=== PATIENT | male | born 1955 | race Caucasian/White ===

== ENCOUNTER 2018-06-14 20:59 | Observation (INO) ==
[2018-06-14] MEDS ORDERED: Naloxone 0.4 MG/ML INJ IVP PRN (23:38)
--- NOTE | 2018-06-15 00:21 | Internal Med History&Physical ---
Date of Encounter: 06/15/18 Time of Encounter: 00:21 Internal Medicine - H&P: HPI Chief complaint: Dizziness History of present illness: Mr. Cole is a 63 year old male with a past medical history of hypertension, hyperlipidemia, coronary artery disease status post quadruple bypass, recent history of TIA/CVA, gout and diabetes who presents with a chief complaint of di zziness. Patient reports for the past week he has come down with a sinus infection with associated upper airway congestion which he attributes to being around his grandchildren who were also sick previously. Patient was seen by his PCP yesterday and started on amoxicillin. However, patient states that earlier this evening after getting up from the dinner table he began having significant dizziness which he describes as the room spinning around him. Patient was also off balance running into door frames. Denies leaning to any particular side with ambulation. Symptoms persisted for several hours and did not improve with rest, at which time his became concerned given his history of previous stroke and decided to come into [facility] for further evaluation. Patient was given fluids and meclizine with improvement in symptoms and subsequently transferred to [place]. Patient reports last March he was evaluated at [facility] and diagnosed with what he believes was a TIA after presenting with symptoms of slurred speech and confusion. He states he still has difficulty writing with us right hand. He is right-hand dominant. He states that workup revealed 50-60% stenosis within his carotids as well as 40% stenosis in the posterior circulation on CTA. Patient has follow-up appointment with neurology in June. Patient otherwise denies any blurry vision, headache, ear fullness or tinnitus, chest pain, palpitation, nausea, vomiting or diarrhea. Further denies any weakness in any of his extremities, paresthesias, facial droop or slurred speech. Patient currently denies any vertigo symptoms of vertigo. My examination patient is neurologically intact. No evidence of nystagmus. Vitals are stable. Review of labs and EKG performed at [place] were unremarkable. Initial CT scan of the head showed no acute changes. An old lacunar infarct involving left basal ganglia region was noted. CTA of the brain performed in March showed up to 40% narrowing of the more proximal basilar artery. Patient was subsequently transferred for further neurologic evaluation. Past Med Surg Social Fam HX - Past Medical History Medical history: coronary artery disease, CVA, diabetes, hypertension, kidney stones, other Additional medical history: vertigo Psychiatric history: no psych history - Past Surgical History Surgical History: coronary bypass (CABG) - Social History Smoking Status: Former smoker Smokeless Tobacco Status: No Alcohol use: rarely Drug use: none - Family History Mother Living Status: Hx Family Cardiac Disorders: Yes Hx Family Cancer: Yes Brother Living Status: Age at : 62 Hx Family Cardiac Disorders: Yes Internal Medicine - H&P: Meds Allopurinol [Zyloprim 300 MG] 300 mg PO DAILY 06/15/18 [History] Amlodipine Besylate 10 mg PO DAILY 06/15/18 [History] Atenolol 25 mg PO BID 06/15/18 [History] Hydrochlorothiazide [Microzide] 12.5 mg PO DAILY 06/15/18 [History] Methocarbamol [Robaxin] 750 mg PO Q8HR 06/15/18 [History] Omeprazole [PriLOSEC] 40 mg PO BID 06/15/18 [History] Ondansetron HCl [Zofran] 4 mg PO Q16H PRN 06/15/18 [History] Quinapril HCl 40 mg PO BID 06/15/18 [History] Scopolamine 1 mg TD Q3D 06/15/18 [History] metFORMIN [Glucophage] 500 mg PO BID 06/15/18 [History] Allergy/AdvReac Type Severity Reaction Status Date / Time No Known Allergies Allergy Verified 06/15/18 00:49 All Systems PM: A 10-system review of systems was performed and is negative for pertinent findings except as documented above in the HPI. - Constitutional Constitutional: no chills, no fever(s), no night sweats - EENT Eyes: no change in vision, no discharge, no pain, no photophobia Ears: no ear discharge, no ear pain, no tinnitus Nose, mouth and throat: no dysphagia, no nasal discharge, no neck pain, no sore throat - Cardiovascular Cardiovascular ROS IM: no chest pain, no diaphoresis, no dyspnea, no light headedness, no palpitations, no syncope - Respiratory Respiratory: no cough, no dyspnea, no wheezing, no excessive phlegm production - Gastrointestinal Gastrointestinal: no abdominal pain, no diarrhea, no hematemesis, no h ematochezia, no melena, no nausea, no vomiting - Musculoskeletal Musculoskeletal ROS IM: no numbness, no tingling - Integumentary Integumentary IM: no rash, no unusual bruising - Neurological Neurological ROS: no confusion, no convulsions, no focal weakness, no numbness, no tingling, no tremor(s) - Hematologic/Lymphatic Hematologic/Lymphatic: no easy bruising - Constitutional Vitals: Temp Pulse Resp BP Pulse Ox 97.6 F 70 18 124/76 95 06/14/18 22:45 06/14/18 22:45 06/14/18 22:45 06/14/18 22:45 06/14/18 23:26 Exam: General: Alert and oriented 3 lying in bed in no acute distress Skin:Normal color, no rash, no lesions. HEENT:EOM, pupils equal, round and reactive. Cardiovascular: Normal S1 & S2, no rubs, murmurs or gallops. No JVD. Pulse regular. Lungs:Normal breath sounds, no wheezes or crackles. Abdomen:Soft, non-tender, no rigidity. Extremities:No deformity, no edema or tenderness, no joint swelling or clubbing. Neurological:Normal cognition and motor skills. Cranial nerves II through XII intact. No evidence of pronator drift. No evidence of nystagmus. Muscle strength 5 out of 5 in upper and lower extremities. Sensation intact. Pulses:Carotid and radial pulses normal +2. Rest of the physical exam is non contributory Internal Med - H&P Results - Labs CBC & Chem 7: 06/15/18 00:59 06/15/18 00:59 - Assessment and plan (1) Dizziness Current Visit: Yes Status: Acute Assessment and plan: 63-year-old male with a past medical history of TIA versus CVA last March presents with dizziness described as the room spinning lasting for several hours improving after taking meclizine. Patient currently asymptomatic and neurologically intact. Review of his labs and EKG are unremarkable. I suspect that symptoms most likely secondary to his current upper respiratory tract infection however, given his history of stroke and duration of his vertiginous symptoms in the setting of his history of carotid and posterior circulatory atherosclerotic disease, there is concern for possible posterior circulatory TIA versus stroke. -Continue neuro checks -We will allow permissive hypertension -Give loading dose of aspirin -We will obtain further stroke workup with echo and carotid duplex. -Consider MRI with vascular imaging of the head and neck and discussion with neurology for choosing the optimal study. Patient does have a strong aversion to MRI and will need some sort of sedation. -Neurology consult (2) Hypertension Current Visit: Yes Status: Acute Assessment and plan: Blood pressure stable. We will hold off patient's home antihypertensives for now. Qualifiers: Qualified Code(s): I10 - Essential (primary) hypertension (3) Acute sinusitis Current Visit: Yes Status: Acute Assessment and plan: Consider continuing patient's antibiotics once medications reconciled. Patient reportedly on amoxicillin. Qualifiers: Qualified Code(s): J01.90 - Acute sinusitis, unspecified (4) History of coronary artery disease Current Visit: Yes Status: Acute Assessment and plan: History of coronary artery disease status post quadruple bypass surgery. Patient denies any chest pain. Continue patient's home regimen for his heart disease. (5) DVT prophylaxis Current Visit: Yes Status: Acute Assessment and plan: Subcutaneous heparin - Time Spent With Patient Total time spent is greater than 50% in coordination of care (as documented) at patient's floor/unit and/or counseling patient:
[2018-06-15] MEDS ORDERED: Aspirin 325 MG TABLET PO ONE (00:50)
[2018-06-15 01:09] LABS: Basophils # 0.1 K/mcL (0.0-0.2); Basophils % 0.4 %; Eosinophils % 0.2 %; Hematocrit 37.8 % (37.5-50.1); Hemoglobin 12.9 g/dL (12.9-16.9); Immature Granulocytes % 0.8 % (0-4); Lymphocytes # 2.4 K/mcL (0.6-4.6); Lymphocytes % 18.9 %; Mean Corpuscular HGB Conc 34.1 g/dL (31.6-35.5); Mean Corpuscular Hemoglobin 32.1 pg (28.0-33.3); Mean Platelet Volume 10.4 fL (9.4-12.4); Monocytes # 0.7 K/mcL (0.0-1.3); Monocytes % 5.8 %; Neutrophils # 9.2 K/mcL (1.6-8.9); Platelet Count 191 K/mcL (140-400); Red Blood Count 4.02 M/mcL (4.19-5.50); Red Cell Distribution Width 13.2 % (11.5-14.5); Segmented Neutrophils % 73.9 %
[2018-06-15 01:21] LABS: INR 1.2; Prothrombin Time 13.2 Seconds (9.4-12.1)
[2018-06-15 01:31] LABS: Alanine Aminotransferase 16 Units/L (7-52); Albumin 3.9 g/dL (3.5-5.7); Albumin/Globulin Ratio 0.9 (1.1-2.2); Alkaline Phosphatase 62 Units/L (34-104); Aspartate Amino Transferase 15 Units/L (13-39); BUN/Creatinine Ratio 21 (6-26); Bilirubin,Total 0.4 mg/dL (0.3-1.0); Blood Urea Nitrogen 16 mg/dL (8-23); Calcium 9.4 mg/dL (8.6-10.3); Carbon Dioxide 25 mEq/L (23-29); Chloride 102 mEq/L (98-107); Globulin 4.2 g/dL (2.4-3.5); Glucose 139 mg/dL (70-105); Osmolality,Calculated 283 (280-300); Potassium 4.3 mEq/L (3.5-5.1); Sodium 135 mEq/L (136-145); Total Protein 8.1 g/dL (6.4-8.9); Troponin I < 0.03 ng/mL (< 0.04); eGFR For Non-African Americans > 60 (> 60)
[2018-06-15 01:44] LABS: Thyroid Stimulating Hormone 2.398 mcIU/mL (0.340-5.600)
[2018-06-15] MEDS: *HR* Heparin 5,000 UNIT/ML VIAL SQ SCH ×2 (03:52→06:04)
[2018-06-15] MEDS ORDERED: Ondansetron ODT 4 MG TAB.RAPDIS PO PRN (06:29)
[2018-06-15 07:01] LABS: Amphetamine Screen,Urine Negative ng/mL (Cutoff=1000); Barbiturate Screen,Urine Negative ng/mL (Cutoff=200)
[2018-06-15 07:02] LABS: Benzodiazepines Screen,Urine Negative ng/mL (Cutoff=300); Cannabinoid Screen,Urine Negative ng/mL (Cutoff = 50); Cocaine Screen,Urine Negative ng/mL (Cutoff= 300); Opiate Screen,Urine Negative ng/mL (Cutoff=300); Phencyclidine Screen,Urine Negative ng/mL (Cutoff=25)
[2018-06-15 07:14] VITALS: BP 134/85
[2018-06-15 07:15] LABS: Bilirubin,Urine Negative (Negative); Blood,Urine Negative (Negative); Clarity,Urine Clear (Clear); Color,Urine Yellow (Yellow); Glucose,Urine (UA) Normal (Normal); Ketones,Urine Negative (Negative); Leukocyte Esterase,Urine Negative (Negative); Nitrite,Urine Negative (Negative); PH,Urine 6.5 pH Units (5.0-8.0); Protein,Urine Negative (Neg-Trace); Specific Gravity,Urine 1.011 (1.010-1.025); Urobilinogen,Urine Normal (Normal)
[2018-06-15 07:18] LABS: Alanine Aminotransferase 17 Units/L (7-52); Albumin 4.2 g/dL (3.5-5.7); Alkaline Phosphatase 64 Units/L (34-104); Aspartate Amino Transferase 25 Units/L (13-39); BUN/Creatinine Ratio 17 (6-26); Bilirubin,Total 0.5 mg/dL (0.3-1.0); Blood Urea Nitrogen 14 mg/dL (8-23); Calcium 9.7 mg/dL (8.6-10.3); Carbon Dioxide 27 mEq/L (23-29); Chloride 100 mEq/L (98-107); Chol/HDL Ratio 7.1 (0-4.9); Cholesterol 235 mg/dL (< 200); Globulin 4.3 g/dL (2.4-3.5); Glucose 103 mg/dL (70-105); HDL Cholesterol 33 mg/dL (40-59); LDL Cholesterol,Calculated 161 mg/dL (0-99); Osmolality,Calculated 281 (280-300); Potassium 4.3 mEq/L (3.5-5.1); Sodium 135 mEq/L (136-145); Total Protein 8.5 g/dL (6.4-8.9); Triglycerides 203 mg/dL (< 150); Troponin I < 0.03 ng/mL (< 0.04); eGFR For Non-African Americans > 60 (> 60)
--- NOTE | 2018-06-15 10:10 | Neurology - Consult Note ---
<Artem Stringer J - Last Filed: 06/15/18 11:45> Date of Encounter: 06/15/18 Time of Encounter: 09:55 Assessment and Plan (1) Dizziness Current Visit: Yes Status: Acute Presents with dizziness. Has history of recent TIA in 2017; there is concern for possible CVA. Neurology has been consulted for further evaluation. At [facility] he has had a CT head which shows sinusitis but no acute ischemia, hemorrhage, mass effect or midline shift. CTA of the head and neck at [facility] reveals 40% stenosis of the posterior circulation. His risk factors for stroke are CAD, HLD, HTN, DM, obesity, recent TIA and former smoker history. My exam today does not find any focal or lateralizing deficits. Given negative exam findings I have low suspicion for a central cause of dizziness; however, given risk factors I will proceed with CVA workup.. The dizziness could certainly be explained by his sinusitis; defer to primary team to manage. Also he did vertiginous symptoms which resolved with Antivert Plan/Recommendations: MRI brain to evaluate for acute pathology; at this time the patient does not wish to proceed with the MRI. Patient refused to MRI I have discussed the importance of the MRI in evaluating for acute pathological cause given his recent TIA however, he wishes to think it over. I agree with the echocardiogram I do not feel that there is a need for the carotid duplex scan since he has had a CTA at [facility] Continue ASA and statin I agree with permissive HTN at this juncture; resume anti-HTN meds if MRI negative for acute event Frequent neurological assessments I have discussed strict blood glucose control, hypertension control and weight loss (2) Acute sinusitis Current Visit: Yes Status: Acute defer to primary team for treatment Qualifiers: Qualified Code(s): J01.90 - Acute sinusitis, unspecified History of Present Illness Chief complaint: dizziness HPI: Mr. Cole is a 63 year old male with a PMH of ,CAD and CABG, DM, HTN, HLD, recent TIA in March of 2018 who presents from [facility] with dizziness. Neurology has been consulted to r/o cause of dizziness and for concerns of possible TIA/CVA. The patient reports that yesterday evening he began to have dizziness after standing up from his chair. He notes that he sat back down to see if it would go away. However, the dizziness was persistent and given his history of recent TIA his spouse called EMS with concerns for possible CVA. He does note that the dizziness was aggravated with position change. He did note that he received meclizine at [facility] and that this did help somewhat. He is currently back to baseline and denies any dizziness. During this event he denies any headache, visual changes, facial droop, slurred speech, ear fullness, tinnitus, unilateral weakness or parasthesias, chest pain, dyspnea, palpitations, or tachycardia. He states that these symptoms are different in comparison to his March TIA. A CT of the head was obtained from [facility] and did not reveal any acute findings but did note a sinusitis. A CTA of the head/neck did not reveal any acute findings but did show 40% stenosis in the posterior circulation. His CXR did not reveal any acute pulmonary findings. Per my review of the EKG he is in sinus rhythm with PVC's. His lab workup did reveal a mild leukocytosis but his UA was not suspicious for UTI and he has no obvious source or signs of infection. His vitals are stable; currently he is resting comfortable in bed without any dizziness. He reports that he has been out of bed today and that his dizziness has resolved after taking antivert. Given his risk factors and history of recent TIA I believe that it would be prudent to proceed with TIA workup. Past Med Surg Social Fam HX - Past Medical History Medical history: coronary artery disease, CVA, diabetes, hypertension, kidney stones, other Additional medical history: vertigo Psychiatric history: no psych history - Past Surgical History Surgical History: coronary bypass (CABG) - Social History Smoking Status: Former smoker Smokeless Tobacco Status: No Alcohol use: rarely Drug use: none - Family History Mother Living Status: Hx Family Cardiac Disorders: Yes Hx Family Cancer: Yes Brother Living Status: Age at : 62 Hx Family Cardiac Disorders: Yes Medications and Allergies Allopurinol [Zyloprim 300 MG] 300 mg PO DAILY 06/15/18 [History] Amlodipine Besylate 10 mg PO DAILY 06/15/18 [History] Aspirin 81 mg PO DAILY 06/15/18 [History] Clopidogrel [Plavix] 75 mg PO DAILY 06/15/18 [History] Meclizine [Antivert] 12.5 mg PO TID PRN 5 Days #15 tablet 06/15/18 [Rx] Metoprolol Succinate [Toprol Xl] 50 mg PO DAILY 06/15/18 [History] Multivit-Min/FA/Vit K/Lycopene [One-A-Day Men's 50 Plus Tablet] 1 tab PO DAILY 06/15/18 [History] Omeprazole [PriLOSEC] 40 mg PO DAILY 06/15/18 [History] Quinapril HCl 40 mg PO BID 06/15/18 [History] Sildenafil Citrate [Viagra] 100 mg PO PRN PRN 06/15/18 [History] metFORMIN [Glucophage] 500 mg PO BID 06/15/18 [History] Allergy/AdvReac Type Severity Reaction Status Date / Time No Known Allergies Allergy Verified 06/15/18 11:14 All Systems: The remainder of the systems were reviewed and are negative Review of Systems: REVIEW OF SYSTEMS GENERAL: Negative for any nausea,fevers, chills, or weight loss, fatigue NEUROLOGIC: Negative for any visual changes, facial asymmetry, dysphagia, dysarthria, hemiparesis, hemisensory deficits, ataxia, seizures, memory loss, convulsions, attention difficulties, hallucinations, disorientation, speech or language dysfunction, coordination difficulties, fumbling with objects POSITIVE: Vertigo, dizziness PSYCH: NEGATIVE: agitation/irritability, anxiety, delirium, nervous, insomnia, SI/HI HEENT: Negative for any head trauma, neck trauma, neck stiffness, photophobia, phonophobia, rhinitis, tinnitus, decreased hearing, ear discharge or fullness POSITIVE: sinusitis CARDIAC: Negative for any chest pain, dyspnea on exertion, palpitations, tachycardia, paroxysmal nocturnal dyspnea, peripheral edema. PULMONARY: Negative for any shortness of breath, wheezing GASTROINTESTINAL: Negative for any abdominal pain, nausea, vomiting, bright red blood per rectum, melena. GENITOURINARY: Negative for any dysuria, hematuria, incontinence. ENDOCRINE: Thyroid trouble, heat/cold intolerance, excessive sweating MUSCULOSKELETAL: Joint pain, stiffness, loss of strengt (bilateral/unilateral), arthritis (mono or poly) Joint swelling (mono or poly), muscle pain/swelling, limitations to motor activity or tolerance Physical Examination - Vital Signs Vital Signs: Initial Vital Signs Temp Pulse Resp BP Pulse Ox 97.6 F 70 18 124/76 95 06/14/18 22:45 06/14/18 22:45 06/14/18 22:45 06/14/18 22:45 06/14/18 22:45 - Exam Exam: Examination: General Examination: *CONSTITUTIONAL: Obese male *GENERAL APPEARANCE OF PATIENT generally healthy, with adequate hygiene *EYES: pupils equal, round, reactive to light and accommodation, 4mm which constrict equally to 2mm, conjunctiva clear without masses or ulcerations, fundi normal. *CARDIOVASCULAR RRR, S1, S2, no mumurs, rubs, or gallops, no peripheral edema, distal temperature normal, dorsalis pedis pulses normal. Musculoskeletal: *GAIT AND STATION normal, with normal Romberg testing, no abnormalities such as broad base gait or spasticity *ASSESSMENT OF MUSCLE STRENGTH IN THE UPPER AND LOWER EXTREMITIES bilateral deltoid, bicep, tricep, business affairs manager strength, hip flexors ,anterior tibialis, dorsoflexion of the foot 5/5 *MUSCLE TONE IN THE UPPER AND LOWER EXTREMITIES normal. No abnormal movements, fasciculations or atrophy identified. Neurological: *ORIENTATION to time, place, person and situation *RECURRENT AND REMOTE MEMORY intact; able to recall events prior to being dizzy and leading up to admission *ATTENTION AND CONCENTRATION are normal; no signs of inattentiveness, able to maintain focus and topic without interruption, thought logic appropriate *LANGUAGE FUNCTION no significant aphasia or dysarthia was noted. *FUND OF KNOWLEDGE aware of current events, past history, vocabulary *MENTAL attention span and concentration normal. Does not have any cognitive impairment, able to follow commands and retains logical thought patterns *CN II optic fundi were normal, no papilledema noted. *CN III,IV, PERRLA extraocular eye movements were full, no nystagmus and no ptosis noted. *CN V shows normal sensation bilaterally,and jaw opens symmetrically. *CN VII shows normal facial movement symmetrically, upper and lower bilaterally. *CN VIII shows no significant hearing loss on examination *CN IX,,X palate elevated symmetrically and normal gag reflex was noted. *CN XI normal strength in the sternocleidomastoid muscles, symmetrical shoulder shrugging. *CN XII tongue protruded in the midline, with normal strength and movement. *SENSORY EXAMINATION light touch intact *REFLEXES: deep tendon reflexes were normal and symmetrical , grade 1/4 diffusely, no pathological reflexes were noted. *CEREBELLAR TESTING normal finger to nose, heel/knee/pandey, and tandem walk. *PAIN LEVEL 0/10 Results - Laboratory Findings CBC and BMP: 06/15/18 00:59 06/15/18 06:33 Abnormal lab findings: Abnormal lab results WBC 12.5 K/mcL (4.3-11.1) H 06/15/18 00:59 RBC 4.02 M/mcL (4.19-5.50) L 06/15/18 00:59 Neutrophils # 9.2 K/mcL (1.6-8.9) H 06/15/18 00:59 PT 13.2 Seconds (9.4-12.1) H 06/15/18 00:59 Sodium 135 mEq/L (136-145) L 06/15/18 06:33 POC Glucose 144 mg/dL (70-99) H 06/14/18 23:17 Globulin 4.3 g/dL (2.4-3.5) H 06/15/18 06:33 Albumin/Globulin Ratio 1.0 (1.1-2.2) L 06/15/18 06:33 Triglycerides 203 mg/dL (< 150) H 06/15/18 06:33 Cholesterol 235 mg/dL (< 200) H 06/15/18 06:33 LDL Cholesterol, Calc 161 mg/dL (0-99) H 06/15/18 06:33 VLDL Cholesterol, Calc 41 mg/dL (< 31) H 06/15/18 06:33 HDL Cholesterol 33 mg/dL (40-59) L 06/15/18 06:33 Cholesterol/HDL Ratio 7.1 (0-4.9) H 06/15/18 06:33 Consult Discharge Plan - Plan Instructions: Chronic Hypertension (DC) Additional Instructions: Suspect peripheral cause of vertigo, labyrinthitis vs. vestibular neuronitis, although unable to rule out CVA with MRI as he declined. PO Antivert PRN Complete abx as prescribed by his PCP for sinusitis Follow up with Neurology as scheduled Referrals: Tayler Esqueda MD [Non-Partnered Physician] - 06/29/18 9:00 am Prescriptions: Meclizine [Antivert] 12.5 mg PO TID PRN 5 Days #15 tablet PRN Reason: Dizziness <Ashlyn Ricketts I - Last Filed: 06/15/18 11:51> Date of Encounter: 06/15/18 Assessment and Plan (1) Dizziness Current Visit: Yes Status: Acute Pt was seen and examined, my medical decision was reviewed with Artem Stringer CNP, , I agree with the documented findings, disposition and treatment plan, as described except to the extent set forth below. This patient who apparently had multiple risk factors for the stroke at a TIA and had a in deed he did have a TIA in the past but at this time his sinus symptoms seems to be more of peripheral in nature than central. He did have a CT of the head and neck that shows about 40% stenosis in his posterior circulation but no critical stenosis reported at the same time on his current neurological examination I did not see any lateralizing sign to be suggestive of posterior circulation stroke. He is already had echocardiogram to make sure there is no embolic source He is very claustrophobic for an MRI considering his exam is completely normal I do not think that we need to wait for an MRI of the brain as it would not change our management plan I would still recommend that he should continue on antiplatelet therapy with aspirin and statin controlled his blood pressure and other risk factors in particularly his diabetes. May need treatment for his sinus disease that might be the contributing factor If echocardiogram is normal and patient is there is a stable he could be discharged from neurology standpoint later this afternoon Ashlyn Ricketts MD (2) Acute sinusitis Current Visit: Yes Status: Acute Qualifiers: Qualified Code(s): J01.90 - Acute sinusitis, unspecified History of Present Illness HPI: Mr. Cole is a 63 year old male All Systems: The remainder of the systems were reviewed and are negative Physical Examination - Vital Signs Vital Signs: Initial Vital Signs Temp Pulse Resp BP Pulse Ox 97.6 F 70 18 124/76 95 06/14/18 22:45 06/14/18 22:45 06/14/18 22:45 06/14/18 22:45 06/14/18 22:45 Results - Laboratory Findings CBC and BMP: 06/15/18 00:59 06/15/18 06:33 Abnormal lab findings: Abnormal lab results WBC 12.5 K/mcL (4.3-11.1) H 06/15/18 00:59 RBC 4.02 M/mcL (4.19-5.50) L 06/15/18 00:59 Neutrophils # 9.2 K/mcL (1.6-8.9) H 06/15/18 00:59 PT 13.2 Seconds (9.4-12.1) H 06/15/18 00:59 Sodium 135 mEq/L (136-145) L 06/15/18 06:33 POC Glucose 144 mg/dL (70-99) H 06/14/18 23:17 Globulin 4.3 g/dL (2.4-3.5) H 06/15/18 06:33 Albumin/Globulin Ratio 1.0 (1.1-2.2) L 06/15/18 06:33 Triglycerides 203 mg/dL (< 150) H 06/15/18 06:33 Cholesterol 235 mg/dL (< 200) H 06/15/18 06:33 LDL Cholesterol, Calc 161 mg/dL (0-99) H 06/15/18 06:33 VLDL Cholesterol, Calc 41 mg/dL (< 31) H 06/15/18 06:33 HDL Cholesterol 33 mg/dL (40-59) L 06/15/18 06:33 Cholesterol/HDL Ratio 7.1 (0-4.9) H 06/15/18 06:33
[2018-06-15 11:17] LABS: Estimated Average Glucose 111 mg/dl; Hemoglobin A1C 5.5 %
--- NOTE | 2018-06-15 11:30 | Discharge Summary ---
- NOTES TO OUTPATIENT PROVIDER Notes to Outpatient Provider: Patient with history of hypertension, hyperlipidemia, CAD status post CABG, recent TIA/CVA 03/2018, diabetes, was admitted for intermittent episodes of vertigo in the setting of URI. Improved with Antivert given at the OSH. CT -ve and given his recent history of CVA, MRI was offered but pt declined while understanding the risk of missing a diagnosis of CVA. He had carotid doppler and Echo prior to discharge and will be discharged home on Antivert PRN and neurology follow up as scheduled. Orders not resulted at time of discharge: Pending orders 06/15/18 10:40 MR head/brain wo con [MR] Routine Date of Encounter: 06/15/18 Time of Encounter: 10:00 - Discharge Diagnosis (1) Dizziness Priority: Primary Status: Acute (2) Hypertension Priority: Secondary Status: Acute Qualifiers: Qualified Code(s): I10 - Essential (primary) hypertension (3) Acute sinusitis Priority: Secondary Status: Acute Qualifiers: Qualified Code(s): J01.90 - Acute sinusitis, unspecified (4) History of coronary artery disease Priority: Secondary Status: Acute (5) DVT prophylaxis Priority: Secondary Status: Acute (6) History of CVA (cerebrovascular accident) Priority: Secondary Status: Acute Hospital course: Mr. Cole is a 63 year old male with history of hypertension, hyperlipidemia, CAD status post CABG, recent TIA/CVA 03/2018, diabetes, who was admitted for intermittent episodes of vertigo in the setting of URI. Improved with Antivert given at the OSH. CT -ve and given his recent history of CVA, MRI was offered but pt declined while understanding the risk of missing a diagnosis of CVA. He had carotid doppler and Echo prior to discharge and will be discharged home on Antivert PRN and neurology follow up as scheduled. Discharge discussed with: patient, nurse - Time Spent with Patient Total time spent providing and/or coordinating discharge services: 25 mins - Discharge Medications Prescriptions: Meclizine [Antivert] 12.5 mg PO TID PRN 5 Days #15 tablet PRN Reason: Dizziness Home Medications: Allopurinol [Zyloprim 300 MG] 300 mg PO DAILY 06/15/18 [History] Amlodipine Besylate 10 mg PO DAILY 06/15/18 [History] Aspirin 81 mg PO DAILY 06/15/18 [History] Clopidogrel [Plavix] 75 mg PO DAILY 06/15/18 [History] Meclizine [Antivert] 12.5 mg PO TID PRN 5 Days #15 tablet 06/15/18 [Rx] Metoprolol Succinate [Toprol Xl] 50 mg PO DAILY 06/15/18 [History] Multivit-Min/FA/Vit K/Lycopene [One-A-Day Men's 50 Plus Tablet] 1 tab PO DAILY 06/15/18 [History] Omeprazole [PriLOSEC] 40 mg PO DAILY 06/15/18 [History] Quinapril HCl 40 mg PO BID 06/15/18 [History] Sildenafil Citrate [Viagra] 100 mg PO PRN PRN 06/15/18 [History] metFORMIN [Glucophage] 500 mg PO BID 06/15/18 [History] Allergies/Adverse Reactions: Allergy/AdvReac Type Severity Reaction Status Date / Time No Known Allergies Allergy Verified 06/15/18 11:14 Date of admission: 06/14/18 22:40 Primary care physician: PCP NONE Consults: 06/14/18 23:38 Consult to Neurology [CONS] Routine Consulting Provider: Neurology [facility] Reason for Consult: Dizziness in the setting of cerebral posterior circulatory athersclerotic disease. Call Completed: No 06/15/18 07:52 Consult to Occupational Therapy [CONS] Routine Comment: Evaluate, develop and implement POC Reason for Consult: dizzy, recent CVA/TIA Does patient have active BEDREST order?: No Is patient medically & hemodynamically stable?: Yes Consult to Physical Therapy [CONS] Routine Comment: Evaluate, develop and implement POC Reason for Consult: dizzy, recent CVA/TIA Does patient have active BEDREST order?: No Is patient medically & hemodynamically stable?: Yes - Constitutional Vitals: Temp Pulse Resp BP Pulse Ox 97.7 F 76 14 134/85 93 06/15/18 07:13 06/15/18 07:13 06/15/18 07:13 06/15/18 07:13 06/15/18 07:13 Exam: General: Alert and oriented 3 lying in bed in no acute distress Skin:Normal color, no rash, no lesions. HEENT:EOMI, pupils equal, round and reactive. Cardiovascular: Normal S1 & S2, no rubs, murmurs or gallops. No JVD. Pulse regular. Lungs:Normal breath sounds, no wheezes or crackles. Abdomen:Soft, non-tender, no rigidity. Extremities:No deformity, no edema or tenderness, no joint swelling or clubbing. Neurological:Normal cognition. Power 5/5 in both UE and LEs bilaterally. Cranial nerves II through XII intact. No evidence of pronator drift. No evidence of nystagmus. Sensation intact. Babinski downgoing - Patient Status Disposition: Home, Self-Care Condition: Fair Functional capacity at discharge: independent ambulation Overall status at discharge: patient is progressing back to baseline - Discharge Instructions Instructions: Chronic Hypertension (DC) Follow Up With: NONE,PCP [Primary Care Provider] - Additional Instructions: Suspect peripheral cause of vertigo, labyrinthitis vs. vestibular neuronitis, although unable to rule out CVA with MRI as he declined. PO Antivert PRN Complete abx as prescribed by his PCP for sinusitis Follow up with Neurology as scheduled - Diet and Activity Activity: resume usual activities as tolerated Diet: low salt diet
[2018-06-16] MEDS ORDERED: Metoprolol XL (24 HR) Succ 50 MG TAB.ER.24H PO SCH (09:00)
[2018-06-16] MEDS ORDERED: Aspirin 81 MG TAB.CHEW PO SCH (09:00)
[2018-06-16] MEDS ORDERED: Aspirin Enteric Coated 81 MG Tablet PO SCH (09:00)
[2018-06-16] MEDS ORDERED: Lisinopril 20 MG TABLET PO ONE (10:55)
== END 2018-06-15 13:55 | disposition home or self-care (01) ==
LOC: 2NENU → SUATTDRO 22:40
PROVIDERS: ADMIT Internal Medicine; ATTEND Internal Medicine